=== PATIENT | female | born 1980 | race Caucasian/White ===

== ENCOUNTER → 2023-11-08 17:06 | Outpatient (REF) | payer BC, SELFPAY | LOC: WDC 17:06 | PROVIDERS: ATTENDING PHYSICIAN Obstetrics & Gynecology; FAMILY PHYSICIAN Physician Assistant | DX: N92.4 Excessive bleeding in the premenopausal period (principal); Z12.31 Encounter for screening mammogram for malignant neoplasm of breast | CPT/HCPCS: 76830; 76856; 77063; 77067 ==

== ENCOUNTER 2023-12-31 06:19 | Day surgery (SDC) | payer BC, SELFPAY ==
[2023-12-24 08:56] LABS: % Basophils 0.7 % (0-2); % Eosinophils 2.9 % (0-6); % Immature Granulocytes 0.3 % (0-0.5); % Lymphocytes 28.5 % (20.5-51.1); % Monocytes 6.8 % (1.7-9.3); % Neutrophils 60.8 % (42.2-75.2); Absolute Basophils 0.1 10^3/uL (0-0.2); Absolute Eosinophils 0.2 10^3/uL (0-0.7); Absolute Lymphocytes 2.1 10^3/uL (1.2-3.4); Absolute Monocytes 0.5 10^3/uL (0.1-0.6); Absolute Neutrophils 4.5 10^3/uL (1.4-6.5); Hematocrit 36.1 % (37.0-47.0); Hemoglobin 12.3 g/dL (12.0-16.0); Mean Corp Hgb Conc. 34.1 g/dL (33.0-37.0); Mean Corpuscular Hgb 30.5 pg (27.0-31.0); Mean Corpuscular Volume 89.6 fL (81.0-99.0); Mean Platelet Volume 9.5 fL (7.4-10.4); Nucleated Red Blood Cells % 0 %; Platelet Count 298 10^3/uL (130-400); Red Blood Cell Count 4.03 10^6/uL (4.20-5.40); Red Cell Dist. Width 12.1 % (11.5-14.5); White Blood Cell Count 7.3 10^3/uL (4.8-10.8)
[2023-12-24 09:21] LABS: Blood Urea Nitrogen 16 mg/dl (7-17); Calcium 9.5 mg/dl (8.4-10.2); Carbon Dioxide 26 mmol/L (22-30); Chloride 103 mmol/L (98-107); Glucose 101 mg/dl (70-99); Potassium 4.3 mmol/L (3.5-5.1); Sodium 138 mmol/L (135-145); eGFR > 60.00
[2023-12-24 09:37] LABS: Beta HCG Quantitative < 2.39 mIU/ml
[2023-12-27 11:55] VITALS: BMI 26.1
[2023-12-31] VITALS (9 sets, daily range): BP systolic 109–135; BP diastolic 66–102; BMI 26.1
--- NOTE | 2023-12-31 09:02 | W.SUR.PREOP ---
Pre-Operative Surgical Note
-
I have examined this patient prior to the performance of the scheduled procedure.
The patient's condition is unchanged from the time of the current History and
Physical and the patient is able to undergo the scheduled procedure.
[2023-12-31] MEDS: NORMOSOL-R 1000 IV (09:18)
[2023-12-31] MEDS: TYLENOL 1000 MG PO (09:18)
--- NOTE | 2023-12-31 10:07 | W.IMMPOSTOP ---
Surgical Immed Post Op Note
-
Primary Surgeon: Agnes Sanz,
Assisting Surgeon: none
Pre-op Diagnosis: Menorrhagia, abnormal uterine bleeding, endometrial mass
Post-op Diagnosis: same
Procedure Performed: Hysteroscopy D&C polypectomy and hysteroscopic myomectomy/resection of submucosal fibroid
Anesthesia Type: general LMA Dr. Sun
Specimen / Cultures: 1. endocervical curettings 2. endometrial curettings and fragments polyps 3. fragments of resected submucosal fibroid
Estimated Blood Loss: 5ml
fluid deficit: 80ml NSS
Complications: none
Operative Findings: Uterus sounded to 8cm, bilateral tubal ostia seen. Polyps noted in endometrial cavity. Submucosal fibroid type 0 resected completely.
Counts correct times 2.
Stable to recovery.
Dictated.
== END 2023-12-31 11:59 | disposition home or self-care (01) ==
LOC: SDS 06:19
PROVIDERS: ATTENDING PHYSICIAN Obstetrics & Gynecology; FAMILY PHYSICIAN Physician Assistant
DX: N84.0 Polyp of corpus uteri (principal); D25.9 Leiomyoma of uterus, unspecified; N92.0 Excessive and frequent menstruation with regular cycle
CPT/HCPCS: 58558; 88305; 36415; 80048; 84702; 85025; 86850; 86900; 86901

== ENCOUNTER → 2024-11-30 17:40 | Outpatient (REF) | payer BC, SELFPAY | LOC: WDC 17:40 | PROVIDERS: ATTENDING PHYSICIAN Obstetrics & Gynecology; FAMILY PHYSICIAN Physician Assistant | DX: N92.0 Excessive and frequent menstruation with regular cycle (principal); Z12.31 Encounter for screening mammogram for malignant neoplasm of breast | CPT/HCPCS: 76830; 76856 ==

== ENCOUNTER 2025-01-09 06:22 | Day surgery (SDC) | payer BC, SELFPAY ==
[2025-01-02 08:49] LABS: Hematocrit 38.3 % (37.0-47.0); Hemoglobin 12.4 g/dL (12.0-16.0); Mean Corp Hgb Conc. 32.4 g/dL (33.0-37.0); Mean Corpuscular Volume 89.3 fL (81.0-99.0); Nucleated Red Blood Cells % 0 %; Platelet Count 287 10^3/uL (130-400); Red Cell Dist. Width 12.5 % (11.5-14.5)
[2025-01-02 09:57] LABS: Blood Urea Nitrogen 11 mg/dl (7-17); Calcium 9.5 mg/dl (8.4-10.2); Carbon Dioxide 23 mmol/L (22-30); Chloride 104 mmol/L (98-107); Glucose 100 mg/dl (70-99); Potassium 4.5 mmol/L (3.5-5.1); Sodium 137 mmol/L (135-145); eGFR > 60.00
[2025-01-02 12:12] LABS: Beta HCG Quantitative < 2.39 mIU/ml
[2025-01-02 13:42] VITALS: BMI 23.4
[2025-01-09] VITALS (9 sets, daily range): BP systolic 118–150; BP diastolic 63–95; BMI 23.4
[2025-01-09] MEDS: TYLENOL 1000 MG PO (09:11)
[2025-01-09] MEDS: NEURONTIN 300 MG PO (09:12)
[2025-01-09] MEDS: NORMOSOL-R/PLASMALYTE-A 1000 IV (09:22)
--- NOTE | 2025-01-09 11:12 | W.IMMPOSTOP ---
Addendum entered and electronically signed by Agnes Sanz DO 01/09/25 13:25:
procedure: lysis of abdominal/omental adhesions
findings: omental adhesions midabdomen which had to be lysed for proper visualization.
Original Note:
Surgical Immed Post Op Note
-
Primary Surgeon: Agnes Sanz DO
Health Center Manager: HAYLEE Orourke
Pre-op Diagnosis: Menorrhagia, fibroid uterus, dysmenorrhea
Post-op Diagnosis: same
Procedure Performed: Robotic total laparoscopic hysterectomy with bilateral salpingectomy
Anesthesia Type: general ET Dr. Banks
Specimen / Cultures: uterus, cervix and bilateral fallopian tubes.
Estimated Blood Loss: 5mL
Urine output 900ml clear yellow urine.
Complications: none
Operative Findings: Uterus containing fibroids, normal appearing fallopian tubes and ovaries.
Counts correct times 2.
Stable to recovery.
[2025-01-09] MEDS: DILAUDID 0.5 MG IV (11:42)
== END 2025-01-09 14:22 | disposition home or self-care (01) ==
LOC: SDS 06:22
PROVIDERS: ATTENDING PHYSICIAN Obstetrics & Gynecology; FAMILY PHYSICIAN Physician Assistant
DX: N92.0 Excessive and frequent menstruation with regular cycle (principal); D25.0 Submucous leiomyoma of uterus; N94.6 Dysmenorrhea, unspecified; K66.0 Peritoneal adhesions (postprocedural) (postinfection)
CPT/HCPCS: 58571; 36415; 80048; 84702; 85025; 86850; 86900; 86901; 88307